=== PATIENT | female | born 1925 | race Caucasian/White ===

== ENCOUNTER 2017-02-15 15:30 | Inpatient (IN) | payer MEDICARE, OTHER ==
[2017-02-15] MEDS ORDERED: ONDANSETRON 4 MG/2 ML VIAL IVP STA ×2 (15:42→17:42)
[2017-02-15] MEDS ORDERED: MORPHINE 2 MG/ML SYRINGE IVP STA (15:42)
[2017-02-15] MEDS ORDERED: ONDANSETRON 4 MG/2 ML VIAL ONE ×2 (15:56→17:43)
[2017-02-15] MEDS ORDERED: MORPHINE 2 MG/ML SYRINGE ONE (15:56)
[2017-02-15] MEDS ORDERED: PIPERACILLIN/TAZOBACTAM 3.375 GM in SODIUM CHLORIDE 0.9% MINIBAG 100 ML IV STA (17:41)
[2017-02-15] MEDS ORDERED: SODIUM CHLORIDE FLUSH 0.9% 10 ML SYRINGE IVP PRN (17:54)
[2017-02-15] MEDS ORDERED: MORPHINE 2 MG/ML SYRINGE IVP PRN (17:54)
[2017-02-15] MEDS: LACTATED RINGERS 1,000 ML IV SCH (19:15)
[2017-02-15] MEDS: SODIUM CHLORIDE FLUSH 0.9% 10 ML SYRINGE IVP SCH (22:05)
[2017-02-16] MEDS: PIPERACILLIN/TAZOBACTAM 3.375 GM in SODIUM CHLORIDE 0.9% MINIBAG 100 ML IV SCH ×3 (00:01→11:28)
[2017-02-16] MEDS: SODIUM CHLORIDE FLUSH 0.9% 10 ML SYRINGE IVP SCH ×2 (06:42→11:30)
[2017-02-16] MEDS ORDERED: LEVOTHYROXINE 100 MCG TABLET PO SCH (07:00)
[2017-02-16] MEDS ORDERED: LEVOTHYROXINE 25 MCG TABLET PO SCH (07:00)
[2017-02-16] MEDS ORDERED: LISINOPRIL 5 MG TABLET PO SCH (09:00)
[2017-02-16] MEDS ORDERED: NON FORMULARY MED (Lisinopril [Lisinopril] 10 MG) PO SCH (09:00)
[2017-02-16] MEDS: LACTATED RINGERS 1,000 ML IV SCH (11:16)
== END 2017-02-16 16:10 | disposition short-term general hospital (02) | DRG 446 ==
DX: K81.9 Cholecystitis, unspecified (principal); K80.42 Calculus of bile duct with acute cholecystitis without obstruction; I10 Essential (primary) hypertension; Z87.891 Personal history of nicotine dependence; E03.9 Hypothyroidism, unspecified

== ENCOUNTER 2017-02-16 16:10 | Outpatient (CLI) | payer MEDICARE, OTHER | END 2017-02-16 16:11 | disposition short-term general hospital (02) | DX: R10.9 Unspecified abdominal pain (principal) | CPT/HCPCS: A0425; A0428 ==

== ENCOUNTER 2017-07-28 12:19 | Outpatient (CLI) | payer MEDICARE, OTHER ==
[~2017-07-28 12:19] MED LIST: IOPAMIDOL-300 100 ML VIAL ONE
[2017-07-28] MEDS ORDERED: IOPAMIDOL-300 100 ML VIAL IVP ONE (14:25)
[2017-07-28] MEDS ORDERED: IOPAMIDOL-300 50 ML VIAL ONE (16:24)
--- NOTE | 2017-08-01 12:24 | CT Report ---
CT ABDOMEN AND PELVIS WITH AND WITHOUT CONTRAST: 07/28/2017 CLINICAL INDICATION: Bleeding, blood in urine, anemia. Axial CT images of the abdomen and pelvis were obtained prior to and following 100 mL Isovue-300 intravenously, using split bolus technique. In accordance with CT protocol optimization, one or more of the following dose reduction techniques were utilized for this exam: automated exposure control, adjustment of mA and/or KV based on patient size, or use of iterative reconstructive technique. No previous CT is available for comparison. Limited evaluation of the lung bases is unremarkable. ABDOMEN: On the unenhanced images, there is no evidence of nephrolithiasis or hydronephrosis. The kidneys demonstrate symmetric uptake and excretion of contrast. Bilateral cortical cysts and parapelvic cysts are present. No renal parenchymal lesion or collecting system lesion is identified. The liver, spleen , pancreas, and adrenal glands are unremarkable. The patient is status post cholecystectomy. No bowel dilatation, free gas, or free fluid is present. No abdominal adenopathy is seen. PELVIS: The distal ureters and urinary bladder appear unremarkable. No pelvic adenopathy or free fluid is present. The pelvic organs appear unremarkable. Osseous structures demonstrate degenerative changes and dextroscoliosis of the lumbar spine. IMPRESSION: BILATERAL RENAL CYSTS. NO SOLID RENAL LESION OR COLLECTING SYSTEM LESION IS IDENTIFIED. CONSIDER FURTHER EVALUATION WITH CYSTOSCOPY. MTDD
== END 2017-07-28 12:20 | disposition home or self-care (01) ==
LOC: DI 12:19
PROVIDERS: ATTEND Nurse Practitioner Family
DX: R31.9 Hematuria, unspecified (principal); D64.9 Anemia, unspecified; Q61.02 Congenital multiple renal cysts
CPT/HCPCS: 74178; Q9967